=== PATIENT | female | born 1990 | race African-American/Black ===

== ENCOUNTER 2016-12-01 10:05 | Emergency (ER) | payer OTHER ==
[~2016-12-01] VITALS: Ht 167.6 cm; Wt 77.1 kg
[~2016-12-01 10:05] MED LIST: ALBU8.5H3 INH
[2016-12-01 11:25] LABS: BASO % 1 % (0-3); EOS # 0.2 x10^3/uL (0.0-0.7); EOS % 3 % (0-3); HEMATOCRIT 37.2 % (36.0-47.0); HEMOGLOBIN 12.5 g/dL (12.0-15.5); LYMPH # 1.7 x10^3/uL (1.0-4.8); LYMPH % 26 % (24-48); MEAN CORPUSCULAR HEMOGLOBIN 32 pg (25-35); MEAN CORPUSCULAR HGB CONC 34 g/dL (31-37); MEAN CORPUSCULAR VOLUME 95 fL (79-100); MONO # 0.5 x10^3/uL (0.0-1.1); MONO % 7 % (0-9); NEUT % 63 % (31-73); PLATELET COUNT 272 x10^3/uL (140-400); RED CELL DISTRIBUTION WIDTH 12.9 % (11.5-14.5); WHITE BLOOD COUNT 6.4 x10^3/uL (4.0-11.0)
[2016-12-01] MEDS ORDERED: IOHEXOL 300 MG/ML 75 ML VIAL. IV ONE (11:25)
[2016-12-01] MEDS ORDERED: IV NORMAL SALINE 1,000ML 1,000 ML IV ONE (11:30)
[2016-12-01] MEDS ORDERED: FENTANYL PF 100 MCG/2 ML VIAL. IV ONE (11:30)
[2016-12-01 11:36] LABS: BILIRUBIN,URINE NEG (NEG); CLARITY,URINE CLEAR; COLOR,URINE YELLOW; GLUCOSE,URINE NEG (NEG); NITRITE,URINE NEG (NEG); UROBILINOGEN,URINE 4 mg/dL (0.2 mg/dL)
[2016-12-01 11:37] LABS: AMORPHOUS SEDIMENT,UR PRESENT /HPF; BACTERIA,URINE FEW /HPF (0-FEW); SQUAMOUS EPITHELIAL CELL,UR FEW /LPF
[2016-12-01 11:39] LABS: CALCIUM 9.1 mg/dL (8.5-10.1); CREATININE 1.1 mg/dL (0.6-1.0); GFR 72.6; POTASSIUM 4.2 mmol/L (3.5-5.1)
--- NOTE | 2016-12-01 12:08 | RAD ---
CT scan of the abdomen and pelvis with contrast 12/01/2016 Clinical history: Right lower quadrant abdominal pain intermittently since this morning. Technique: After the intravenous administration of 75 cc of Omnipaque 300, contiguous, 5 mm axial sections were obtained through the abdomen and pelvis. One or more of the following individualized dose reduction techniques were utilized for this study: 1. Automated exposure control. 2. Adjustment of the mA and/or kV according to patient size. 3. Use of iterative reconstruction technique. Findings: Images through the lung bases are within normal limits. The liver parenchyma has a decreased attenuation consistent with mild fatty infiltration. A 1 cm rounded low-attenuation lesion is seen involving the left lobe of the liver which likely represents a hemangioma. The spleen, pancreas, adrenal glands and kidneys are within normal limits. The abdominal aorta tapers normally. The gallbladder is contracted. No free fluid or free air is seen within the abdomen. The appendix is well visualized and is within normal limits. Air and stool is seen throughout the colon. There is no evidence of bowel obstruction. Images through the pelvis demonstrate the urinary bladder distended with urine. A 3.8 cm oval-shaped low-attenuation structure is seen in the right adnexa. This likely represents a right ovarian cyst. A small to moderate amount of free fluid is seen within the pelvis. Minimal S shaped curvature of the thoracolumbar spine is seen. Impression: 3.8 cm probable right ovarian cyst. A small to moderate amount of free fluid is seen within the pelvis.
[2016-12-01 12:11] VITALS: BP 109/68
[2016-12-01] MEDS ORDERED: HYDR-971 PO (12:22)
--- NOTE | 2016-12-01 12:25 | ED.ADGEN ---
Past History Past Medical History: Ectopic Past Surgical History: Additional Smoking Information: 5 CIGARETTES A DAY Alcohol Use: None Drug Use: None Adult General HPI HPI Patient is a 26-year-old female presents emergency department complaining of right lower quadrant pain that began immediately after intercourse approximately 3 hours ago. Patient denies any other symptoms including fever, chills, nausea, vomiting,. Patient denies any vaginal bleeding or discharge. She does report to the intercourse was slightly more physical than usual but denies any other foreign bodies or out of the ordinary activity. Patient states that she has not had a menstrual cycle for 2 months. She has had a negative home test. She does have a history of ectopic twice in the past. Review of Systems Review of Systems Constitutional: Denies fever or chills [] Eyes: Denies change in visual acuity, redness, or eye pain [] HENT: Denies nasal congestion or sore throat [] Respiratory: Denies cough or shortness of breath [] Cardiovascular: No additional information not addressed in HPI [] GI: Denies abdominal pain, nausea, vomiting, bloody stools or diarrhea [] : Denies dysuria or hematuria [] Musculoskeletal: Denies back pain or joint pain [] Integument: Denies rash or skin lesions [] Neurologic: Denies headache, focal weakness or sensory changes [] Endocrine: Denies polyuria or polydipsia [] Current Medications Current Medications Current Medications Medications (Trade) Dose Ordered Sig/[facility] Start Time Stop Time Status Last Admin Dose Admin Fentanyl Citrate (Fentanyl 2ml Vial) 75 mcg 1X ONCE 12/01/16 11:30 12/01/16 11:31 DC Iohexol (Omnipaque 300 Mg/ml) 75 ml 1X ONCE 12/01/16 11:25 12/01/16 11:27 DC 12/01/16 11:23 75 ML Ketorolac Tromethamine (Toradol) 15 mg 1X ONCE 12/01/16 12:30 12/01/16 12:31 UNV Sodium Chloride (Iv Sodium Chloride 0.9% 1,000ml) 1,000 ml @ 1,000 mls/hr 1X ONCE 12/01/16 11:30 12/01/16 12:29 12/01/16 11:23 1,000 MLS/HR Allergies Allergies Allergies Coded Allergies Type Severity Reaction Last Updated Verified No Known Drug Allergies 01/26/16 No Physical Exam Physical Exam Constitutional: Well developed, well nourished, no acute distress, non-toxic appearance. [] HENT: Normocephalic, atraumatic, bilateral external ears normal, oropharynx moist, no oral exudates, nose normal. [] Eyes: PERRLA, EOMI, conjunctiva normal, no discharge. [] Neck: Normal range of motion, no tenderness, supple, no stridor. [] Cardiovascular:Heart rate regular rhythm, no murmur [] Lungs & Thorax: Bilateral breath sounds clear to auscultation [] Abdomen: Bowel sounds normal, soft, moderate right lower quadrant tenderness palpation without peritoneal signs, no masses, no pulsatile masses. [] Skin: Warm, dry, no erythema, no rash. [] Back: No tenderness, no CVA tenderness. [] Extremities: No tenderness, no cyanosis, no clubbing, ROM intact, no edema. [] Neurologic: Alert and oriented X 3, normal motor function, normal sensory function, no focal deficits noted. [] Psychologic: Affect normal, judgement normal, mood normal. [] Current Patient Data Vital Signs Vital Signs Date Time Temp Pulse Resp B/P Pulse Ox O2 Delivery O2 Flow Rate FiO2 12/01/16 12:11 98.0 103 22 99 Room Air Lab Results Laboratory Tests Test 12/01/16 10:50 12/01/16 10:53 12/01/16 11:14 Urine Collection Type U cath Urine Color Yellow Urine Clarity Clear Urine pH 7.0 Urine Specific [place] 1.025 Urine Protein Neg (NEG-TRACE) Urine Glucose (UA) Negmg/dL (NEG) Urine Ketones (Stick) Negmg/dL (NEG) Urine Blood Neg (NEG) Urine Nitrite Neg (NEG) Urine Bilirubin Neg (NEG) Urine Urobilinogen Dipstick 4mg/dL (0.2 mg/dL) Urine Leukocyte Esterase Neg (NEG) Urine RBC 3-5/HPF (0-2) Urine WBC 5-10/HPF (0-4) Urine Squamous Epithelial Cells Few/LPF Urine Amorphous Sediment Present/HPF Urine Bacteria Few/HPF (0-FEW) Urine Mucus Slight/LPF POC Urine HCG, Qualitative hcg negative (Negative) White Blood Count 6.4x10^3/uL (4.0-11.0) Red Blood Count 3.90x10^6/uL (3.50-5.40) Hemoglobin 12.5g/dL (12.0-15.5) Hematocrit 37.2% (36.0-47.0) Mean Corpuscular Volume 95fL (79-100) Mean Corpuscular Hemoglobin 32pg (25-35) Mean Corpuscular Hemoglobin Concent 34g/dL (31-37) Red Cell Distribution Width 12.9% (11.5-14.5) Platelet Count 272x10^3/uL (140-400) Neutrophils (%) (Auto) 63% (31-73) Lymphocytes (%) (Auto) 26% (24-48) Monocytes (%) (Auto) 7% (0-9) Eosinophils (%) (Auto) 3% (0-3) Basophils (%) (Auto) 1% (0-3) Neutrophils # (Auto) 4.0x10^3uL (1.8-7.7) Lymphocytes # (Auto) 1.7x10^3/uL (1.0-4.8) Monocytes # (Auto) 0.5x10^3/uL (0.0-1.1) Eosinophils # (Auto) 0.2x10^3/uL (0.0-0.7) Basophils # (Auto) 0.0x10^3/uL (0.0-0.2) Sodium Level 141mmol/L (136-145) Potassium Level 4.2mmol/L (3.5-5.1) Chloride Level 105mmol/L (98-107) Carbon Dioxide Level 28mmol/L (21-32) Anion Gap 8 (6-14) Blood Urea Nitrogen 14mg/dL (7-20) Creatinine 1.1mg/dL (0.6-1.0) H Estimated GFR (Cockcroft-Gault) 72.6 Glucose Level 54mg/dL (70-99) L Calcium Level 9.1mg/dL (8.5-10.1) Aspartate Amino Transferase (AST) 15U/L (15-37) Alanine Aminotransferase (ALT) 22U/L (14-59) Alkaline Phosphatase 92U/L (46-116) Lipase 85U/L (73-393) EKG EKG [] Radiology/Procedures Radiology/Procedures CT scan of the abdomen and pelvis with contrast 12/01/2016 Clinical history: Right lower quadrant abdominal pain intermittently since this morning. Technique: After the intravenous administration of 75 cc of Omnipaque 300, contiguous, 5 mm axial sections were obtained through the abdomen and pelvis. One or more of the following individualized dose reduction techniques were utilized for this study: 1. Automated exposure control. 2. Adjustment of the mA and/or kV according to patient size. 3. Use of iterative reconstruction technique. Findings: Images through the lung bases are within normal limits. The liver parenchyma has a decreased attenuation consistent with mild fatty infiltration. A 1 cm rounded low-attenuation lesion is seen involving the left lobe of the liver which likely represents a hemangioma. The spleen, pancreas, adrenal glands and kidneys are within normal limits. The abdominal aorta tapers normally. The gallbladder is contracted. No free fluid or free air is seen within the abdomen. The appendix is well visualized and is within normal limits. Air and stool is seen throughout the colon. There is no evidence of bowel obstruction. Images through the pelvis demonstrate the urinary bladder distended with urine. A 3.8 cm oval-shaped low-attenuation structure is seen in the right adnexa. This likely represents a right ovarian cyst. A small to moderate amount of free fluid is seen within the pelvis. Minimal S shaped curvature of the thoracolumbar spine is seen. Impression: 3.8 cm probable right ovarian cyst. A small to moderate amount of free fluid is seen within the pelvis. DICTATED AND SIGNED BY: YAMILA FORD MD DATE: 12/01/16 1153 CC: MIGUELITO BARTON MD; PCP,NO ~[] Course & Med Decision Making Course & Med Decision Making Pertinent Labs and Imaging studies reviewed. (See chart for details) Patient was given prescription for [place]. She was asked to follow-up with her [employer] [employer] in the next 2-3 days and return emergency department sooner she develops new or worsening symptoms. [] Final Impression Final Impression Right ovarian cyst [] Problems: Dragon Disclaimer Dragon Disclaimer This electronic medical record was generated, in whole or in part, using a voice recognition dictation system. MIGUELITO BARTON MD Dec 01, 2016 12:25
[2016-12-01] MEDS ORDERED: KETOROLAC 15 MG/ML VIAL. IV ONE (12:45)
== END 2016-12-01 12:34 | disposition home or self-care (01) ==
LOC: ER 10:05
DX: N83.201 Unspecified ovarian cyst, right side (principal); F17.210 Nicotine dependence, cigarettes, uncomplicated
CPT/HCPCS: 36415; 74177; 80048; 81001; 83690; 84075; 84450; 84460; 84703; 85027; 87086; 96360; 99285; Q9967; 81025; J7030